=== PATIENT | female | born 1990 | race Caucasian/White ===

== ENCOUNTER 2020-06-03 10:05 | Outpatient (CLI) | payer OTHER, SELFPAY ==
[2020-06-03 11:34] LABS: HIV 1/2 Ab P24 Ag Result Negative (Negative)
[2020-06-03 11:52] LABS: Hepatitis B Surface Antigen Negative (Negative)
[2020-06-03 11:58] LABS: Hepatitis B Core IgM Result Negative (Negative)
[2020-06-03 12:10] LABS: Hepatitis C Virus Antibody Negative (Negative)
[2020-06-04 10:38] LABS: Rapid Plasma Reagin Non-Reactive (NonReactive)
[2020-06-05 17:56] LABS: Hepatitis Be Antibody Nonreactive
== END 2020-06-03 10:06 | disposition home or self-care (01) ==
LOC: ANHLAB 10:08
PROVIDERS: PCP Nurse Practitioner Family; Visit Provider Nurse Practitioner Obstetrics & Gynecology
DX: A64 Unspecified sexually transmitted disease (principal)
CPT/HCPCS: 36415; 86592; 86695; 86696; 86703; 86705; 86707; 86803; 87340; G0432

== ENCOUNTER 2024-09-06 05:43 | Day surgery (SDC) | payer OTHER, SELFPAY ==
[2024-09-06] VITALS (10 sets, daily range): BP systolic 129–144; BP diastolic 82–105; PULSE 75–119; RESP 12–20; TEMP 36.6–36.7; O2SAT 98–100
--- OUTSIDE RECORDS SUMMARY | 2024-09-06 06:09 | XMS_ITS | Encounter Summary ---
Author Organization [facility] Address [address] [place] [id number] Care Team Providers Care Hand Stonecutter Name Role Phone Betsy Packer Primary Care Provider [phone] Encounter Details Date Type Department Care Team (Late st Contact Info) Description 11/15/2022 MyChart Message Enc [facility] - [place] [address] [place] [phone] Betsy Packer APNP [address] [place] [address] Next Appt Social History Tobacco Use Types Packs/Day Years Used Date Smoking Tobacco: Former Cigarettes Smokeless Tobacco: Never Comments:only when drinking Alcohol Use Standard Drinks/Week Comments Not Currently 0 (1 standard drink = 0.6 oz pur e alcohol) occasionally PHQ-2 Answer Date Recorded Patient Health Questionnaire-2 Score 0 08/24/2022 Comments No Sex and Gender Information Value Date Recorded Sex Assigned at Female 08/15/2024 11:09 AM CDT Legal Sex Female 6:20 PM CDT Gender Identity Not on file Sexual Orientation Not on file COVID-19 Exposure Response Date Recorded In the last 10 days, have yo u been in contact with someone who was confirmed or suspected to have Coronavirus/COVID-19? No / Unsure 10/21/2022 7:08 AM CDT documented as of this encounter Plan of Treatment Not on file documented as of this encounter Visit Diagnoses Not on filedocumented in this encounter Additional Health Concerns Assessment Noted Time PHQ-9 Depression Total Score: 0 08/25/19 12:35 PM CDT documented as of this encounter Care Teams Hand Stonecutter Relationship Specialty Start Date End Date Betsy Packer APNP [address] [place] [id number] PCP - General NURSE PRACTITIONER 06/17/21 documented as of this encounter
--- OUTSIDE RECORDS SUMMARY | 2024-09-06 06:09 | XMS_ITS | Data Portability ---
Author Organization [facility] Address [address] [place] [address] Care Team Providers Care Air Brake Adjuster Name Role Phone ALESSIONARDA Primary Care Provider [phone] CHAPIN PERAZA Primary Care Provider [phone] Assessment Encounter Date Assessment Date Assessment LastModified by Organization Details LastModified Time 08/30/2022 08/30/2022 Annual gynecological exam performed. Patient will come back in a year unless there are new symptoms. [email or web address] Not available 08/30/2022 12:06:13 09/27/2023 09/27/2023 Annual gynecological exam performed. Patient will come back in a year unless there are new symptoms. [email or web address] Not available 09/27/2023 12:42:22 Plan of Treatment Reminders Order Date Submit Date Provider Last Modified By Organization Details Last Modified Time Details Appointments None recorded. Lab None recorded. Referral None recorded. Procedures None recorded. Surgeries None recorded. Imaging None recorded. Medication Orders Diflucan [address] [facility]/Pharmacy #[id number], [address] [place], [address], 4 13:00:33 metronidazo le 500 mg tablet [address] [facility]/Pharmacy #[id number], [address] [place], [address], 4 13:00:32 NuvaRing 0.12 mg-0.015 mg/24 hr vaginal [address]/Pharmacy #6830, [address] [place], [address], 4 09:25:18 YUMI (28) 3 mg-0.02 mg tablet 2022 023 [email or web address] [facility]/Pharmacy #[id number], [address] [place], [address], 4 12:45:00 NuvaRing 0.12 mg-0.015 mg/24 hr vaginal 2022 023 [email or web address] [facility]/Pharmacy #6830, [address] [place], [address], 3 11:08:15 Diflucan 200 mg tablet [address]/Pharmacy #6830, [address] [place], [address], 3 12:07:29 nystatin-tr iamcinolone 100,000 unit/gram-0 .1 % topical ointment [address]/Pharmacy #6830, [address] [place], [address], 3 12:07:33 Patient TargetsNo targets recorded. Patient InstructionsNo instructions recorded. Reason for Referral None Reported. Results Created Date Observation Date Name Description Value Unit Range Abnormal Flag Note LastModifiedBy Organization Detail LastModifiedTime 11/26/19 22 11/25/2021 CT/GC AND TRICH OMONA S VAGIN CEDRIC (RRNA ), URINE chlamydia trachomatis, PCR Negati ve negati ve Not Available [facility] [address] [place] [address], [phone], 11/26/2021 15:06:41 11/26/19 22 11/25/2021 CT/GC AND TRICH OMONA S VAGIN CEDRIC (RRNA ), URINE neisseria gonorrhoeae, PCR Negati ve negati ve Not Available [facility] [address] [place] [address], [phone], 11/26/2021 15:06:41 11/26/19 22 11/25/2021 CT/GC AND TRICH OMONA S VAGIN CEDRIC (RRNA ), URINE trichomonas vaginalis ribosomal RNA (rrna) Negati ve negati ve Not Available [facility] [address] [place] [address], [phone], 11/26/2021 15:06:41 03/05/20 22 03/05/2022 CT/GC AND TRICH OMONA S VAGIN CEDRIC (RRNA ), SWAB chlamydia trachomatis, PCR Negati ve negati ve Not Available [facility] [address] [place] [address], [phone], 03/06/2022 12:48:28 03/05/20 22 03/05/2022 CT/GC AND TRICH OMONA S VAGIN CEDRIC (RRNA ), SWAB neisseria gonorrhoeae, PCR Negati ve negati ve Not Available [facility] [address] [place] [address], [phone], 03/06/2022 12:48:28 03/05/20 22 03/05/2022 CT/GC AND TRICH OMONA S VAGIN CEDRIC (RRNA ), SWAB trichomonas vaginalis ribosomal RNA (rrna) Negati ve negati ve Not Available [facility] [address] [place] [address], [phone], 03/06/2022 12:48:28 08/31/19 23 08/30/2022 IMAGE GUIDE D PAP AND HPV REGAR DLESS image guided Pap, HPV regardless of Pap result SEE RESULT S BELOW CASE REPOR T: Cytol ogy Gynec ologi aiden Repor t Case: [id number] Autho justo g Provi pawan: Fredrick Billingsley Colle cted: 08/30 1438 SAP SECURITY ARCHITECT Order ing Locat ion: [place] [facility] Recei zuleyma: 08/31 0902 First Scree n: Dodie Vega ret, CT Speci men: Scree michelle Pap - Image d, Cervi x STATE MENT OF ADEQU ACY: Satis facto ry for evalu ation Trans forma tion zone compo nent prese nt FINAL DIAGN OSIS: Negat guerline for Intra epith elial Lesantonella victoria or Baltazar lubin (NIL) . Elect baljinder scruggs alan d by Dodie Vega ret, CT on 2022 at 1:54 PM ----- ----- ----- ----- ----- ----- ----- ----- ----- ----- ----- ----- ----- ----- ----- ----- ----- ---- HPV RESUL TS: HPV mRNA E6/E7 : No HPV mRNA Detec patrica NOTE: This high risk HPV mRNA assay detec ts fourt een high- risk HPV types (16, 18, 31, 33, 35, 39, 45, 51, 52, 56, 58, 59, 66, 68) witho ut diffe renti ation . COMME NT: This speci men was revie wed by a Cytot echno logis t and/o r Patho logis t (as indic ated in this repor t) after evalu ation using the Thinp rep Imagi ng Syste m. CLINI AIDEN INFOR MATIO N: Menst rual Statu s: LMP (if appli cable ): Clini aiden Histo ry/Pr eviou s Pap: Type of Neopl ruth ann (if appli cable ): Signi fican t Clini aiden Findi ngs: Other Histo ry: Hormo chuy (if appli cable ): PAP EDUCA ZACHARY L NOTE: The Pap Test is a scree mihcelle test with an inher ent false negat guerline rate. Liqui d-bas ed sampl ing may decre ase, but will not elimi claudia, false negat guerline resul ts. A negat guerline resul t does not precl ude the prese nce and/o r devel opmen t of disea se, since the prese nce of abnor mal cells in the sampl e depen ds on the locat ion of the lesio n and sampl ing techn ique. Janny nued regul ar scree michelle is the best metho d of cance r preve ntion . If repor patrica cytol ogic findi ng do not corre late with physi aiden and/o r histo rical findi ngs, furth er inves tigat ion is recom ranjan d, as clini magen warra nted. Not Available [facility] (Lab) [address] [facility], [place], [address], 09/02/2022 14:56:54 08/31/19 23 08/30/2022 TRICH OMONA S VAGIN CEDRIC (RRNA ) trichomonas vaginalis ribosomal RNA (rrna) Negati ve negati ve Not Available [facility] (Lab) [address] [facility], [place], [address], 09/02/2022 14:56:54 08/31/19 23 08/30/2022 CT/GC (NIKITA) , THINP REP VIAL chlamydia trachomatis, PCR Negati ve negati ve Not Available [facility] (Lab) [address] [facility], [place], [address], 09/02/2022 14:56:55 08/31/19 23 08/30/2022 CT/GC (NIKITA) , THINP REP VIAL neisseria gonorrhoeae, PCR Negati ve negati ve Not Available [facility] (Lab) [address] [facility], [place], [address], 09/02/2022 14:56:55 12/30/19 23 12/29/2022 CT/GC AND TRICH OMONA S VAGIN CEDRIC (RRNA ), URINE chlamydia trachomatis, PCR NEGATI VE negati ve Not Available [facility] (Lab) [address] [facility], [place], [address], 12/30/2022 16:24:57 12/30/19 23 12/29/2022 CT/GC AND TRICH OMONA S VAGIN CEDRIC (RRNA ), URINE neisseria gonorrhoeae, PCR NEGATI VE negati ve Not Available [facility] (Lab) [address] [facility], [place], [address], 12/30/2022 16:24:57 12/30/19 23 12/29/2022 CT/GC AND TRICH OMONA S VAGIN CEDRIC (RRNA ), URINE trichomonas vaginalis ribosomal RNA (rrna) NEGATI VE negati ve Not Available [facility] (Lab) [address] [facility], [place], [address], 12/30/2022 16:24:57 09/27/19 24 09/27/2023 IMAGE GUIDE D PAP AND HPV REGAR DLESS image guided Pap, HPV regardless of Pap result SEE RESULT S BELOW CASE REPOR T: Cytol ogy Gynec ologi aiden Repor t Case: [id number] Autho justo rodriguez Provi pawan: Fredrick Billingsley Colle cted: 09/26 1706 SAP SECURITY ARCHITECT Order ing Locat ion: [place] Patho logy Recei zuleyma: 09/27 0811 First Scree n: Dodie Vega ret CT Speci men: Scree michelle Pap - Image d, Cervi x STATE MENT OF ADEQU ACY: Satis facto ry for evalu ation Trans forma tion zone compo nent prese nt ----- ----- ----- ----- ----- ----- ----- ----- ----- ----- ----- ----- ----- ----- ----- ----- ----- ---- FINAL DIAGN OSIS: Negat guerline for Intra epith elial Beatriz victoria or Baltazar lubin (NIL) . Elect baljinder phillips d by Dodie Vega ret CT on 2023 at 9:22 AM ----- ----- ----- ----- ----- ----- ----- ----- ----- ----- ----- ----- ----- ----- ----- ----- ----- ---- HPV RESUL TS: HPV mRNA E6/E7 : No HPV mRNA Detec patrica NOTE: This high risk HPV mRNA assay detec ts fourt een high- risk HPV types (16, 18, 31, 33, 35, 39, 45, 51, 52, 56, 58, 59, 66, 68) witho ut diffe renti ation . COMME NT: This speci men was revie wed by a Cytot echno logis t and/o r Patho logis t (as indic ated in this repor t) after evalu ation using the Thinp rep Imagi ng Syste m. CLINI AIDEN INFOR MATIO N: Menst rual Statu s: LMP (if appli cable ): Clini aiden Histo ry/Pr eviou s Pap: Type of Neopl ruth ann (if appli cable ): Signi fican t Clini aiden Findi ngs: Other Histo ry: Hormo chuy (if appli cable ): PAP EDUCA ZACHARY L NOTE: The Pap Test is a scree michelle test with an inher ent false negat guerline rate. Liqui d-bas ed sampl ing may decre ase, but will not elimi claudia, false negat guerline resul ts. A negat guerline resul t does not precl ude the prese nce and/o r devel opmen t of disea se, since the prese nce of abnor mal cells in the sampl e depen ds on the locat ion of the lesio n and sampl ing techn ique. Janny nued regul ar scree michelle is the best metho d of cance r preve ntion . If repor patrica cytol ogic findi ng do not corre late with physi aiden and/o r histo rical findi ngs, fur er inves tigat ion is recom ranjan d, as clini magen dumont nted. Not Available [facility] (Lab) [address], [place], [address], 10/01/2023 10:26:46 09/27/19 24 09/27/2023 TRICH OMONA S VAGIN CEDRIC (RRNA ) trichomonas vaginalis ribosomal RNA (rrna) Negati ve negati ve Not Available [facility] (Lab) [address] [facility], [place], [address], 10/01/2023 10:26:47 09/27/19 24 09/27/2023 CT/GC (NIKITA) , THINP REP VIAL chlamydia trachomatis, PCR Negati ve negati ve Not Available [facility] (Lab) [address] [facility], [place], [address], 10/01/2023 10:26:47 09/27/19 24 09/27/2023 CT/GC (NIKITA) , THINP REP VIAL neisseria gonorrhoeae, PCR Negati ve negati ve Not Available [facility] (Lab) [address] [facility], [place], [address], 10/01/2023 10:26:47 Result Notes None recorded. Problems Name Problem SNOMED Code Status Onset Date Resolution Date Notes Provider Name and Address Organization Details Recorded Time Pregnanc y test negative [id number] Completed 201208/22/2012 Pregnanc y examinat ion or test, negative result;R ecorded Elsewher e: No Locat ion: [facility] S ource: EHR Sawmill Equipment Operator hallie: Dejah Carmona ce ID: 0001 Bryson lable Time: 08:30:00 AM Flory flores [facility] 10:57:25 Postpart um care Completed 201307/21/2020 Postpart um care and examinat ion of lactatin g mother;R ecorded Elsewher e: No Locat ion: [facility] S ource: EHR Sawmill Equipment Operator hallie: Dejah Carmona ce ID: 0001 Bryson lable Time: 11:30:00 AM Flory flores [facility] 1 10:57:23 Venereal disease screenin g Completed 201407/21/2020 Screenin g examinat ion for venereal disease; Recorded Elsewher e: No Locat ion: [facility] [place] saira [facility] S ource: EHR Sawmill Equipment Operator hallie: N Kristine ce ID: 0001 Bryson lable Time: 02:30:00 PM Flory flores [facility] 1 10:57:55 Speciali zed medical examinat ion Completed 201208/22/2012 Gynecolo gical Examinat ion;Fransisco rded Elsewher e: No Locat ion: [facility] S ource: EHR Sawmill Equipment Operator hallie: N Carlosti ce ID: 0001 Bryson lable Time: 10:30:00 AM Flory flores [facility] 10:57:41 Implanta tion of subcutan eous contrace ptive Completed 201307/21/2020 Insertio n of implanta ble subderma l contrace ptive;Re corded Elsewher e: No Locat ion: [facility] S ource: EHR Sawmill Equipment Operator hallie: N Carlosti ce ID: 0001 Bryson lable Time: 09:45:00 AM Flory flores [facility] 1 10:57:15 Syphilis test finding [id number] Completed 201607/21/2020 Encntr screen for infectio ns w sexl mode of transmis s;Record ed Elsewher e: No Locat ion: [facility] S ource: EHR Sawmill Equipment Operator hallie: N Kristine ce ID: 0001 Bryson lable Time: 02:15:00 PM Flory flores [facility] 1 10:57:46 Primigra akash [id number] Completed 201307/21/2020 Supervis ion of normal first pregnanc y;Record ed Elsewher e: No Locat ion: [facility] S ource: EHR Sawmill Equipment Operator hallie: N Practi ce ID: 0001 Bryson lable Time: 09:30:00 AM Flory flores [facility] 10:57:[address] Concept Completed 201607/21/2020 Encounte r for surveill ance of other contrace ptives;R ecorded Elsewher e: No Locat ion: [facility] S ource: EHR Sawmill Equipment Operator hallie: N Practi ce ID: 0001 Bryson lable Time: 12:58:44 PM Flory Guzman [facility] 10:57:39 Conducti on disorder of the heart [id number] Completed 201307/21/2020 Bradycar henrik;Fransisco rded Elsewher e: No Locat ion: [facility] S ource: EHR Sawmill Equipment Operator hallie: N Practi ce ID: 0001 Bryson lable Time: 02:27:45 PM Flory Guzman [facility] 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 10:57:37 Chlamydi al infectio n [id number] Completed 201707/21/2020 Chlamydi al infectio n, unspecif ied;Fransisco rded Elsewher e: No Locat ion: [facility] S ource: EHR Sawmill Equipment Operator hallie: N Practi ce ID: 0001 Bryson lable Time: 11:00:00 AM Flory Guzman [facility] 1 10:56:56 Speciali zed medical examinat ion Completed 201407/21/2020 ROUTINE RENTAL MANAGER EXAMINAT ION;Fransisco rded Elsewher e: No Locat ion: Josefina chávez [facility] S ource: EHR Sawmill Equipment Operator hallie: N Kristine ce ID: 0001 Bryson lable Time: 02:30:00 PM Flory Guzman [facility], [facility] 10:57:41 Atypical squamous cells of undeterm ined signific ance on cervical Papanico laou smear [id number] Completed 201207/21/2020 Papanico laou smear of cervix with atypical squamous cells of undeterm ined signific ance (ASC-US) ;Recorde d Elsewher e: No Locat ion: [facility] saira [facility] N Kristine ce ID: 0001 Bryson lable Time: 10:00:00 AM Flory Guzman [facility] 10:56:28 Screenin g for malignan t neoplasm of cervix Completed 201407/21/2020 Screenin g for malignan t neoplasm s of the cervix;R ecorded Elsewher e: No Locat ion: Josefina chávez [facility] N Kristine ce ID: 0001 Bryson lable Time: 02:30:00 PM Flory Guzman [facility] 10:57:34 Threaten ed miscarri age [id number] Completed 201307/21/2020 Threaten ed , antepart um;Recor ded Elsewher e: No [facility]: EHR Sawmill Equipment Operator hallie: N Carlosti ce ID: 0001 Bryson lable Time: 12:14:00 PM Flory Guzman [facility], [facility] 10:57:49 Irregula r intermen strual bleeding [id number] Completed 201407/21/2020 Irregula r bleeding between periods; Recorded Elsewher e: No [facility]at ion[facility] S [facility]: EHR Sawmill Equipment Operator hallie: N Kristine ce ID: 0001 Bryson lable Time: 02:30:00 PM Flory flores, [facility] 10:57:18 Obesity [id number] Completed 201407/21/2020 Obesity; Recorded Elsewher e: No Locat ion: [facility] N Kristine ce ID: 0001 Bryson lable Time: 02:30:00 PM Flory flores, [facility] 1 10:57:20 Procedur e Completed 201707/21/2020 Encounte r for checking , reinsert ion or removal of implanta ble subderma l contrace ptive;Re corded Elsewher e: No Locat ion: [facility]: N Kristine ce ID: 0001 Bryson lable Time: 05:00:00 PM Flory Waltertz mark, [facility] 1 10:57:32 Screenin g for malignan t neoplasm of cervix Completed 201208/22/2012 Screenin g for malignan t neoplasm s of the cervix;R ecorded Elsewher e: No Locat ion: [facility]: Dejah Carmona ce ID: 0001 Bryson lable Time: 10:30:00 AM Flory flores, [facility] 1 10:57:34 Ultrason ography Completed 201307/21/2020 Antenata l screenin g for malforma tion using ultrason ics;Fransisco rded Elsewher e: No Locat ion: [facility] S ource: EHR Sawmill Equipment Operator hallie: Dejah Gonzalezti ce ID: 0001 Bryson lable Time: 02:30:00 PM Flory Waltertz mark [facility] 10:57:53 Antenata l screenin g Completed 201307/21/2020 Antenata l screenin g for malforma tion using ultrason ics;Fransisco rded Elsewher e: No [facility]at [facility]: EHR Sawmill Equipment Operator hallie: N Practi ce ID: 0001 Bryson lable Time: 02:30:00 PM Flory flores, [facility] 1 10:56:25 Congenit al malforma tion [id number] Completed 201307/21/2020 Antenata l screenin g for malforma tion using ultrason ics;Fransisco rded Elsewher e: No Locat ion: [facility] S ource: EHR Sawmill Equipment Operator hallie: N Practi ce ID: 0001 Bryson lable Time: 02:30:00 PM Flory Guzman [facility], [facility] 1 10:57:08 Infectio n screenin g Completed 201607/21/2020 Encounte r for screenin g for oth infec/pa rastc diseases ;Recorde d Elsewher e: No Locat ion: [facility]: N Practi ce ID: 0001 Bryson lable Time: 02:15:00 PM Flory Guzman [facility], [facility] 1 10:57:12 Speciali zed medical examinat ion Completed 201407/21/2020 Other specifie d chlamydi al diseases ;Recorde d Elsewher e: No Locat ion: [facility] S ource: EHR Sawmill Equipment Operator hallie: N Practi ce ID: 0001 Bryson lable Time: 02:30:00 PM Flory Guzman [facility] 10:57:43 Cervical intraepi thelial neoplasi a grade 1 [id number] Completed 201207/21/2020 Mild dysplasi a of cervix;R ecorded Elsewher e: No Locat ion: [facility] S ource: EHR Sawmill Equipment Operator hallie: N Practi ce ID: 0001 Bryson lable Time: 08:30:00 AM Flory Guzman mark, [facility] 10:56:59 Complica tion related to pregnanc y Completed 201307/21/2020 Weight Insuffic ient Antepart um;Pract ice ID: 0001 Flory Guzman mark, [facility] 10:57:02 Prematur e labor [id number] Completed 201307/21/2020 LABOR;Pr actice ID: 0001 Flory Guzman [facility], [facility] 10:57:27 Delivery normal [id number] Completed 201307/21/2020 Normal delivery ;Practic e ID: 0001 Flory Megan mark, [facility] 10:57:10 Single live from singleto n pregnanc y [id number] Completed 201307/21/2020 Mother with single liveborn ;Practic e ID: 0001 Flory Guzman [facility], [facility] 10:57:36 Pregnanc y test negative [id number] Completed 201307/21/2020 Negative Pregnanc y Test;Pra ctice ID: 0001 Flory Guzman [facility], [facility] 10:57:25 History of abnormal cervical Papanico laou smear [id number] Completed 201208/27/2021 lgsil / HPV CIN1 Rachna Lopez [facility] 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 4 12:45:16 Mixed anxiety and depressi ve disorder [id number] Active 2023 Flory Guzman [facility] 12:45:33 Problem Notes None recorded. Procedures Surgical History Date Name Laterality Status Provider Name and Address Organization Details Recorded Time 08/29/19 22 Date of Last Pap Smear completed Rachna Lopez [facility] 11/25/2021 16:01:08 08/08/19 21 Unlisted px femur/knee completed Daisy Ramos [facility]- [address], [place], [address], [facility] 08/28/2021 11:56:34 06/16/19 21 Colposcopy completed Flory Guzman [facility] 07/21/2020 11:03:04 06/16/19 21 Colposcopy completed Flory Guzman [facility] 09/27/2023 13:01:05 08/23/19 13 Colposcopy completed Flory Guzman [facility] 07/21/2020 11:01:19 05/09/19 10 Tonsillectomy completed Florylucy Guzman [facility] 09/27/2023 13:01:55 Imaging Results None recorded. Procedure Notes None recorded. Medical Equipment None Reported. Allergies No known drug allergies Medications Name Sig Start Date Stop Date Status Note LastModified by Organization Details LastModified Time amoxicill in 500 mg capsule TAKE 1 CAPSULE BY MOUTH EVERY 12 HOURS FOR 10 DAYS 08/28 completed Not Available Not Available Not Available prednison e 10 mg tablet START 60 MG TODAY AND DECREASE BY ONE TABLET EACH DAY UNTIL COMPLETE . 09/26 completed Not Available Not Available Not Available doxycycli ne hyclate 100 mg capsule TAKE 1 CAPSULE BY MOUTH TWICE A DAY FOR 7 DAYS 11/25 completed Not Available Not Available Not Available azithromy lorrie 250 mg tablet TAKE 2 TABLETS BY MOUTH TODAY, THEN TAKE 1 TABLET DAILY FOR 4 DAYS 09/26 completed Not Available Not Available Not Available ibuprofen 800 mg tablet 11/25 completed Not Available Not Available Not Available fluconazo le 150 mg tablet TAKE 1 TABLET (150 MG TOTAL) BY MOUTH ONCE FOR 1 DOSE. 09/26 completed Not Available Not Available Not Available valacyclo vir 1 gram tablet TAKE 1 TABLET EVERY 12 HOURS BY ORAL ROUTE. 11/17 completed Not Available Not Available Not Available hydrocodo ne 5 mg-acetam inophen 325 mg tablet 11/25 completed Not Available Not Available Not Available tretinoin 0.025 % topical cream 12/29 completed Not Available Not Available Not Available fluconazo le 200 mg tablet TAKE 1 TABLET EVERY OTHER DAY X 3 DOSES active Not Available Not Available No t Available metronida zole 0.75 % (37.5 mg/5 gram) vaginal gel INSERT 1 APPLICAT ORFUL EVERY DAY BY VAGINAL ROUTE. 06/29 completed Not Available Not Available Not Available prednison e 20 mg tablet TAKE 3 TABLETS DAILY FOR 3 DAYS, 2 TABLETS DAILY FOR 3 DAYS, THEN 1 TABLET DAILY FOR 3 DAYS 09/26 completed Not Available Not Available Not Available dextroamp hetamine- amphetami ne 10 mg tablet TAKE 1 TABLET BY MOUTH TWICE A DAY 08/28 completed Not Available Not Available Not Available ceftriaxo ne 250 mg solution for injection Take 1 mg by injectio n route for 1 day. 07/07 completed Not Available Not Available Not Available metronida zole 500 mg tablet TAKE 1 TABLET BY ORAL ROUTE EVERY 12 HOURS X 7 DAYS WITH FOOD AND AVOID ALCOHOL 2023 active Not Available Not Available Not Avai lable acetamino phen 300 mg-codein e 30 mg tablet TAKE 1 TO 2 TABLETS BY MOUTH EVERY 6 HOURS NEEDED FOR PAIN 04/30 completed Not Available Not Available Not Available triamcino lone acetonide 0.1 % topical cream APPLY TOPICALL Y TWICE A DAY 09/26 completed Not Available Not Available Not Available dextroamp hetamine- amphetami ne 30 mg tablet TAKE 1(ONE) TABLET BY MOUTH 2(TWO) TIMES DAILY. active Not Available Not Available No t Available nystatin- triamcino lone 100,000 unit/gram -0.1 % topical ointment APPLY TO THE AFFECTED AREA(S) BY TOPICAL ROUTE 2 TIMES PER DAY x 7 days PRN 08/30 completed Not Available Not Available Not Available alprazola m 0.5 mg tablet TAKE 1 TABLET BY MOUTH 2 TIMES DAILY NEEDED FOR SLEEP OR ANXIETY. active Not Available Not Available No t Available amoxicill in 875 mg tablet TAKE 1 TABLET BY MOUTH EVERY 12 HOURS FOR 10 DAYS 08/28 completed Not Available Not Available Not Available benzonata te 100 mg capsule 11/07 completed Not Available Not Available Not Available hydrocodo ne 7.5 mg-acetam inophen 325 mg tablet TAKE 1 TABLET BY MOUTH EVERY 4 HOURS 04/30 completed Not Available Not Available Not Available cephalexi n 500 mg capsule TAKE 1 CAPSULE BY MOUTH EVERY 6 HOURS 04/30 completed Not Available Not Available Not Available buspirone 10 mg tablet TAKE 1 TABLET BY MOUTH TWICE A DAY 08/28 completed Not Available Not Available Not Available dextroamp hetamine- amphetami ne 20 mg tablet TAKE 1 TABLET (20 MG TOTAL) BY MOUTH DAILY. IN THE AFTERNOO N 09/26 completed Not Available Not Available Not Available Loestrin 20 (21) 1 mg-20 mcg tablet take 1 tablet by oral route every day 04/30 completed Prescrib ed Elsewher e: No Locat ion: [facility] odify By: [email or web address] ndt Enco unter DateTime : 10/12/19 03:45:00 PM Not Available Not Available Not Available promethaz ine 25 mg tablet 04/30 completed Not Available Not Available Not Available dextroamp hetamine- amphetami ne 15 mg tablet TAKE 1 TABLET BY MOUTH 2 TIMES DAILY. 08/28 completed Not Available Not Available Not Available Drysol Dab-O-Mat ic 20 % topical solution APPLY TOPICALL Y NIGHTLY AT BEDTIME. 09/26 completed Not Available Not Available Not Available monteluka st 10 mg tablet 08/28 completed Not Available Not Available Not Available Valtrex 500 mg tablet Take 1 tablet(s ) every day by oral route for 90 days. 2024 active Not Available Not Available Not Avai lable azelastin e 137 mcg (0.1 %) nasal spray SPRAY 2 SPRAYS INTO EACH NOSTRIL TWICE A DAY 08/28 completed Not Available Not Available Not Available albuterol sulfate HFA 90 mcg/actua tion aerosol inhaler INHALE 2 PUFFS INTO THE LUNGS 4 TIMES A DAY NEEDED 08/28 completed Not Available Not Available Not Available Vitamin D2 1,250 mcg (50,000 unit) capsule take 1 capsule (84228KY ITS) by oral route every week 05/07 completed Prescrib ed Elsewher e: No Locat ion: [facility] odify By: erika barrower DateTime : 08/09/19 14 10:27:49 AM Not Available Not Available Not Available cefdinir 300 mg capsule 04/30 completed Not Available Not Available Not Available naproxen 500 mg tablet TAKE 1 TABLET BY MOUTH TWICE A DAY 05/28 completed Not Available Not Available Not Available amoxicill in 875 mg-potass ium clavulana te 125 mg tablet TAKE 1 TABLET BY MOUTH TWICE A DAY FOR 10 DAYS 09/26 completed Not Available Not Available Not Available NuvaRing 0.12 mg-0.015 mg/24 hr vaginal INSERT 1 DEVICE INTO VAGINA EVERY 4WKS FOR CONTINUO US USE THERAPY. active Not Available Not Available No t Available azithromy lorrie 500 mg tablet TAKE 2 TABLETS BY MOUTH FOR 1 DOSE 03/05 completed Not Available Not Available Not Available atomoxeti ne 25 mg capsule TAKE 1 CAPSULE BY MOUTH EVERY DAY 08/28 completed Not Available Not Available Not Available ciproflox acin 0.3 %-dexamet hasone 0.1 % ear drops,hazel pension 04/30 completed Not Available Not Available Not Available Tri-Sprin sung (28) 0.18 mg(7)/0.2 15 mg(7)/0.2 5 mg(7)-0.0 35 mg tablet take 1 tablet by oral route every day 07/10 completed Prescrib ed Elsewher e: No Locat ion: [facility] odify By: erika louis DateTime : 01/18/20 13 04:13:46 PM Not Available Not Available Not Available levalbute rol HFA 45 mcg/actua tion aerosol inhaler INHALE 2 PUFFS INTO THE LUNGS EVERY 6 HOURS NEEDED FOR WHEEZE active Not Available Not Available No t Available NuvaRing 11/07 completed Not Available Not Available Not Available Nexplanon 68 mg subdermal implant Inject by subcutan eous route. 04/30 completed Not Available Not Available Not Available Vestura (28) 3 mg-0.02 mg tablet Take 1 tablet every day by oral route as directed for 90 days. active Not Available Not Available No t Available lidocaine 5 % topical ointment APPLY TO AFFECTED AREA 1 4 TIMES DAILY NEEDED 08/28 completed Not Available Not Available Not Available Ubrelvy 50 mg tablet TAKE 1 TABLET BY MOUTH TWICE A DAY NEEDED FOR MIGRAINE S. MAX 4 TABS IN 24 HOURS. 03/05 completed Not Available Not Available Not Available Flowflex COVID-19 Antigen Home Test kit FOLLOW INSTRUCT IONS INCLUDED WITH THE PACKAGE. 08/30 completed Not Available Not Available Not Available Vitals Date Recorded Body height Body weight Systolic blood pressure Diastolic blood pressure Provider Name and Address Organization Details Last Updated DateTime 11/25/2021 167.64 cm 87098.99 g 126 mm[Hg] 74 mm[Hg] [facility] 11/25/2021 16:00:11 Date Recorded Body height Body mass index (BMI) Body weight Systolic blood pressure Diastolic blood pressure Provider Name and Address Organization Details Last Updated DateTime 03/05/2022 167.64 cm 31.2 kg/m2 18737.33 g 122 mm[Hg] 70 mm[Hg] [facility] 11:23:08 Date Recorded Body height Body mass index (BMI) Body weight Provider Name and Address Organization Details Last Updated DateTime 08/30/2022 167.64 cm 30.3 kg/m2 25003.37 g Rachna [facility] 08/30/2022 12:06:24 Date Recorded Systolic blood pressure Diastolic blood pressure Provider Name and Address Organization Details Last Updated DateTime 08/30/2022 118 mm[Hg] 76 mm[Hg] Daisy Ramos, [facility]- [address], [place], [address], [facility] 08/31/2022 10:57:17 Date Recorded Body height Body mass index (BMI) Body weight Systolic blood pressure Diastolic blood pressure Provider Name and Address Organization Details Last Updated DateTime 12/29/2022 167.64 cm 29.4 kg/m2 07145.81 g 138 mm[Hg] 86 mm[Hg] Lisset Ross [facility] 10:59:41 Date Recorded Systolic blood pressure Diastolic blood pressure Provider Name and Address Organization Details Last Updated DateTime 12/29/2022 118 mm[Hg] 80 mm[Hg] Daisy Ramos, [facility] [address], [place], [address], [facility] 12/29/2022 11:12:22 Date Recorded Body height Body mass index (BMI) Body weight Provider Name and Address Organization Details Last Updated DateTime 09/27/2023 167.64 cm 29.5 kg/m2 97367.4 g Flory Guzman [facility] 09/27/2023 12:42:54 Date Recorded Systolic blood pressure Diastolic blood pressure Provider Name and Address Organization Details Last Updated DateTime 09/27/2023 122 mm[Hg] 70 mm[Hg] Daisy Ramos, [facility] [address], [place], [address], [facility] 09/27/2023 13:54:58 Social History Question Answer Notes LastModified by Organizat ion Details LastModified Time Tobacco Smoking Status Never Smoker BECKY flores, [facility] 08/30/2022 12:01:18 Do You Have An Advance Directive? No Information not available 08/28/2021 What Is Your Level Of Alcohol Consumption? Occasional Information not available 05/28/2020 If You Are , What Was Your Level Of Alcohol Consumption Prior To ? None Information not available 08/30/2022 How Many Years Have You Consumed Alcohol? 6 Information not available 05/28/2020 Are You Blind Or Do You Have Difficulty Seeing? No [email or web address] Information not available 07/21/2020 What Is Your Level Of Caffeine Consumption? Occasional [email or web address] Information not available 07/21/2020 How Much Tobacco Do You Chew? None Information not available 08/28/2021 In The 14 Days Before Symptom Onset, Have You Had Close Contact With A Laboratory-confir med COVID-19 While That Case Was Ill? No [email or web address] Information not available 07/21/2020 In The 14 Days Before Symptom Onset, Have You Had Close Contact With A Person Who Is Under Investigation For COVID-19 While That Person Was Ill? No [email or web address] Information not available 07/21/2020 Have You Been To An Area Known To Be High Risk For COVID-19? No [email or web address] Information not available 07/21/2020 Are You Deaf Or Do You Have Serious Difficulty Hearing? No [email or web address] Information not available 07/21/2020 What Type Of Diet Are You Following? REGULAR [email or web address] Information not available 07/21/2020 What Is The Highest Grade Or Level Of School You Have Completed Or The Highest Degree You Have Received? 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 5 Information not available 08/30/2022 On Those Days That You Engage In Moderate To Strenuous Exercise, How Many Minutes, On Average, Do You Exercise? 60 Information not available 08/30/2022 Are There Any Guns Present In Your Home? Yes Information not available 08/28/2021 Have You Ever Been Counseled For Unhealthy Alcohol Use? No Information not available 08/30/2022 Do You Use Protection During Sex? Always Information not available 08/28/2021 Do You Use Your Seat Belt Or Car Seat Routinely? Yes [email or web address] Information not available 07/21/2020 Do You Have Smoke And Carbon Monoxide Detectors In Your Home? Yes [email or web address] Information not available 07/21/2020 How Much Tobacco Do You Smoke? No Information not available 08/28/2021 Do You Feel Stressed (tense, Restless, Nervous, Or Anxious, Or Unable To Sleep At Night)? [id number] [email or web address] Information not available 07/21/2020 Do You Use Any Illicit Or Recreational Drugs? No Information not available 05/28/2020 Do You Use Sunscreen Routinely? Yes [email or web address] Information not available 07/21/2020 Has Tobacco Cessation Counseling Been Provided? No Information not available 08/30/2022 Have You Used IV Drugs? No Information not available 08/28/2021 Do You Or Have You Ever Used Any Other Forms Of Tobacco Or Nicotine? No Information not available 08/30/2022 How Many Days In The Past Year Have You Consumed 4 Or More Drinks? 15 Information no t available 08/30/2022 Sex: Unknown Functional Status Question Answer Note LastModified by Organizat ion Details LastModified Time Do you have difficulty walking or climbing stairs? No Information not available 08/30/2022 Are you able to walk? YESWOREST [email or web address] Information not available 07/21/2020 Are you able to care for yourself? Yes Information not available 08/30/2022 Do you have difficulty dressing or bathing? No Information not available 08/30/2022 What is your exercise level? Heavy Information not available 08/28/2021 Mental Status None recorded. Family History Relationship Description Onset Age of this Age Resolved Age Notes LastModified by Organization Details LastModified Time Father No current problems or disability [email or web address] Not available 07/07 11:00:30 Mother No current problems or disability Not available 07/07 11:00:30 Medical History Condition Response Other N Blood Transfusion N Dermatologic Disorders N Gestational Diabetes N Anxiety Disorder Y Autoimmune disease N Arthritis N Polyps N Infertility N Acid Reflux (GERD) N Cancer N Varicosities N Stroke N Neurologic/Epilepsy Y Fibromyalgia N Headaches N Kidney Disease N Heart Problems N Kidney or Bladder Problems N Eating Disorder N Art (IVF or FET) N Hepatitis/Liver Disease N No Past Medical History N Urinary Tract Infection N Asthma N Trauma/Violence N Thrombophilias N Allergies (Food, seasonal, environmental ) N Breast Cancer N Drug/Latex Allergies/Reactions N Lung Disease N Defects or Inherited Disease N Breast Problem N Hematologic disorders N Anesthesia Complications N History of STI Y Deep Vein Thrombosis N Polycystic ovary syndrome N History of abnormal pap Y Endometriosis N High Cholesterol N Thyroid Problems N GI Problems N Anemia N Psychiatric Illness Y Ovarian Cancer N Diabetes N Pulmonary (TB, Asthma) N Eczema N Abuse/Domestic Violence N Depression/ depression Y Heart Disease N Pre-Eclampsia N Hypertension N Osteoporosis N Gynecological History Statement/Question Response Date of Last Mammogram Date of LMP 08/28/2023 N STIs/STDs Yes Was last menstrual period normal Y Vaginal Ring Desired Control Method Vaginal Rin g Abnormal Pap Y HPV Vaccine Y Colposcopy 06/16/2020 Duration of Flow (days) 5 Current Control Method Vaginal Rin g Are cycles usually normal Y Sexually Active? Y Menses Monthly Y Date of DEXA bone scan Age of first menstrual cycle 15 Date of Last Pap Smear 08/28/2021 Sexual Problems? N LMP Definite N 08/20/2012 Obstetrics History GPAL:G 1 P 1 0 0 1 Type Value Full Term 1 Living 1 Total 1 Past Encounters Encounter ID Performer Location Encounter Start Date Encounter Closed Date Diagnosis/Indication Diagnosis SNOMED-CT Code Diagnosis ICD10 Code Diagnosis Note [id number] Daisy Ramos , [facility] [address] [address] 10/22/2019 15:32:21 10/22/2019 17:28:17 Gynecologic examination 66471874 Z01.419 Take Calcium with Vitamin D 1200mg daily if not receiving in daily diet. It is strongly advised to have an annual flu shot and up can obtain at most pharmacies . If you have not had a TDap shot in the last 10 years you should obtain one as well. Discussed with patient & provided with informatio n regarding Gardisil vaccine to prevent the 4 strains for HPV that cause cervical cancer if under age 26. Encourage safe sexual practices, to use condoms and limit partners if not already in a monogamous relationsh ip. Do monthly self breast exams. Have mammogram yearly or every other year depending on family history. BRCA testing is now available for patients with strong genetic history of female cancer. If interested contact the office. Engage in daily exercise of low impact aerobic exercise 45-60 minutes 4-5 times weekly. Avoid tobacco and illicit drugs as well as using moderation with alcohol intake less than 1-2 8 oz beverages daily. This lifestyle behavior pattern will lead to less health conditions and longer life span. If BMI greater than 25 weight watchers or dietary consult advised. Patient received above instructio ns, and questions have been answered. If you have any questions please call or respond to this email. Patient was made aware of the patient portal and may obtain a paper copy of today's plan if desired. [facility] ion care management [id number] Z30.9 [id number] Daisy Friedbrook [facility] [address],[place] [address] 04/30/2020 12:06:44 04/30/2020 13:10:10 Sexually transmitted infectious disease 1499083 A64 BRANDEE sent today No sx's Time spent in visit is a total of 15 mins with at least 50% of visit consisting of counseling and review of plan of care. Secondary dysmenorrhea 36574063 N94.5 RF Naproxen sent [id number] Daisy Friedbrook [facility] [address],[place] [address] 05/28/2020 11:36:52 05/28/2020 12:06:29 Cervicovaginal cytology specimen unsatisfactory [id number] R87.615 Pap collected. Will contact with results. Time spent in visit is a total of 15 mins with at least 50% of visit consisting of counseling and review of plan of care. Additional precaution lilibeth measures were taken to minimize potential exposure to the Covid-19 virus during this patient s visit, including available hand powdered sugar supervisor upon arrive, temperatur e check and being asked a series of screening questions. All staff wore face coverings during this encounter, as well as provided additional cleaning and sanitizing of all surfaces, including countertop s, pens, chairs, door handles, light switches, etc, prior to and following the patient s visit. [id number] Chapin Freeman [facility] [place] [address],[place] [address] 06/03/2020 10:01:24 06/16/2020 14:24:02 Gonorrhea 37874927 A54.9 [id number] Chapin Freeman CN[facility] [place] [address] [place] [address] 07/21/2020 10:47:08 07/21/2020 11:20:11 Gynecologic examination 53855578 Z01.419 contracept guerline management Gonorrhea 74754819 A54.9 Venereal d isease screening 005088603 Z11.3 [id number] Chapin ChávezHong Pete, [facility] [address] [address] 11/07/2020 10:31:43 11/07/2020 13:23:11 Herpes simplex 27051749 B00.9 Vaginitis 18169700 N76.0 [id number] Daisy Ramos , [facility] [address] [address] 08/28/2021 11:27:48 08/31/2021 16:02:19 Gynecologic examination 78398447 Z01.419 Take Calcium with Vitamin D 1200mg daily if not receiving in daily diet. It is strongly advised to have an annual flu shot and up can obtain at most pharmacies . If you have not had a TDap shot in the last 10 years you should obtain one as well. Discussed with patient & provided with informatio n regarding Gardisil vaccine to prevent the 4 strains for HPV that cause cervical cancer if under age 26. Encourage safe sexual practices, to use condoms and limit partners if not already in a monogamous relationsh ip. Do monthly self breast exams. Have mammogram yearly or every other year depending on family history. BRCA testing is now available for patients with strong genetic history of female cancer. If interested contact the office. Engage in daily exercise of low impact aerobic exercise 45-60 minutes 4-5 times weekly. Avoid tobacco and illicit drugs as well as using moderation with alcohol intake less than 1-2 8 oz beverages daily. This lifestyle behavior pattern will lead to less health conditions and longer life span. If BMI greater than 25 weight watchers or dietary consult advised. Patient received above instructio ns, and questions have been answered. If you have any questions please call or respond to this email. Patient was made aware of the patient portal and may obtain a paper copy of today's plan if desired. Pap/hpv sentSTD Screen declinedGe netic Screen discussedC olon Screen naDexa Screen naRoutine Labs UTD PCP Herpes simplex [id number] B00.9 RF sent x 1yr Contracept ion care management [id number] Z30.9 RF sent x 1yr [id number] Daisy Ramos [facility] [address],[place] [address] 11/25/2021 15:51:09 11/25/2021 16:20:10 Venereal disease screening 645617513 Z11.3 BRANDEE sentWill contact with results Counseled on Safe sex practices with understand ing verbalized . Time spent in visit is a total of 15 mins with at least 50% of visit consisting of counseling and review of plan of care. [id number] Daisy Ramos [facility] [address],[place] [address] 03/05/2022 11:07:56 03/05/2022 12:13:30 Vaginitis 20239945 N76.0 Suspect yeastRecen t trip to [place] likely cause.STD screen sent Counseled on medication R/B's, Most common side effects, & use. All questions were answered to patient satisfacti on. Time spent in visit is a total of 15 mins with at least 50% of visit consisting of counseling and review of plan of care. [id number] Daisy Ramos [facility] [address],[place] [address] 08/30/2022 11:59:17 08/31/2022 11:57:41 Gynecologic examination 98748976 Z01.419 Z11.3 Z11.8 Take Calcium with Vitamin D 1200mg daily if not receiving in daily diet. It is strongly advised to have an annual flu shot and up can obtain at most pharmacies . If you have not had a TDap shot in the last 10 years you should obtain one as well. Discussed with patient & provided with informatio n regarding Gardisil vaccine to prevent the 4 strains for HPV that cause cervical cancer if under age 26. Encourage safe sexual practices, to use condoms and limit partners if not already in a monogamous relationsh ip. Do monthly self breast exams. Have mammogram yearly or every other year depending on family history. BRCA testing is now available for patients with strong genetic history of female cancer. If interested contact the office. Engage in daily exercise of low impact aerobic exercise 45-60 minutes 4-5 times weekly. Avoid tobacco and illicit drugs as well as using moderation with alcohol intake less than 1-2 8 oz beverages daily. This lifestyle behavior pattern will lead to less health conditions and longer life span. If BMI greater than 25 weight watchers or dietary consult advised. Patient received above instructio ns, and questions have been answered. If you have any questions please call or respond to this email. Patient was made aware of the patient portal and may obtain a paper copy of today's plan if desired. Pap/hpv sentSTD Screen sentGeneti c Screen discussedC olon Screen naDexa Screen naRoutine Labs -PCPBC: Nuvaring-- wants to make appt to discuss tubal ligation. [facility] ion care management [id number] Z30.9 RF sent x 1yr but is possibly interested in consult for tubal ligation.W ill schedule. [id number] Daisy Ramos [facility] [address] [address] 12/29/2022 10:43:50 12/29/2022 11:20:11 Cystic acne 73284745 L70.0 N94.5 Today we discussed switch in from nuvaring to BCP for at least the next 90 days.We will hold off on continuous use cycling until after the first 90days & discuss this at her 3mos med check.She will start on Tuesday since on period now.Back up method advised. Discussed all control options in great detail. Pt would like to start ocp. She is aware of the risks and benefits. She does not have any medical condition that is contraindi cated with the use of estrogen containing control. Pt will start her pills on the first tuesday following the start of her period. She is aware it is not effective for control the first month. She is also aware of the importance of taking at the same time every day. Encouraged use of condoms as the pill does not protect against STD's. Will return in 3 months for med check. Consent was read and signed. Pt verbalized understand ing. RTO x 3mos med check Time spent in visit is a total of 30 mins with at least 50% of visit consisting of counseling and review of plan of care. Venereal d isease screening [id number] Z11.3 Urine std screen sent upon requestNo sx's [id number] Daisy Ramos , [facility] [address] [address] 09/27/2023 12:33:04 09/27/2023 13:59:27 Gynecologic examination 44867677 Z01.419 Z11.51 Take Calcium with Vitamin D 1200mg daily if not receiving in daily diet. It is strongly advised to have an annual flu shot and up can obtain at most pharmacies . If you have not had a TDap shot in the last 10 years you should obtain one as well. Discussed with patient & provided with informatio n regarding Gardisil vaccine to prevent the 4 strains for HPV that cause cervical cancer if under age 26. Encourage safe sexual practices, to use condoms and limit partners if not already in a monogamous relationsh ip. Do monthly self breast exams. Have mammogram yearly or every other year depending on family history. BRCA testing is now available for patients with strong genetic history of female cancer. If interested contact the office. Engage in daily exercise of low impact aerobic exercise 45-60 minutes 4-5 times weekly. Avoid tobacco and illicit drugs as well as using moderation with alcohol intake less than 1-2 8 oz beverages daily. This lifestyle behavior pattern will lead to less health conditions and longer life span. If BMI greater than 25 weight watchers or dietary consult advised. Patient received above instructio ns, and questions have been answered. If you have any questions please call or respond to this email. Patient was made aware of the patient portal and may obtain a paper copy of today's plan if desired. Pap/hpv sentSTD Screen sentGeneti c Screen discussedC olon Screen [facility] -[facility]: Nuvaring-- wants rf's Vaginitis [id number] N76.0 Exam +BV/Yeast presentati on Counseled on medication R/B's, Most common side effects, & use. All questions were answered to patient satisfacti on. Health Concerns Section Related Observation LastModified by Organization Detai ls LastModified Time None Recorded Concern Status LastModified by Organization Details LastModified Time None Recorded Advance Directives Directive N: Payers Encounter Date Sequence Insurance Name Policy Number Policy Alvarez Covered Member ID Alvarez Member ID Guarantor Name 11/25/2021 1 [facility] [id number] Lynn Roland [id number] Lynn Roland 03/05/2022 1 [facility] [id number] Lynn Roland [id number] Lynn Roland 08/30/2022 1 [facility] [id number] Lynn Roland [id number] Lynn Roland 12/29/2022 1 [facility] [id number] Lynn Roland [id number] Lynn Roland 09/27/2023 1 [facility] [id number] Lynn Roland [id number] Lynn Roland Notes Date Note Type Note Provider Name and Address Organization Details Recorded Time 11/25/2021 text/html Here today for T OC from +STD screening. Daisy Ramos [facility] [address], [place], [address], [facility] 11/25/2021 16:09:50 03/05/2022 text/html Here today for vaginal swelling & recent trip to [place].Neg odorNeg urinary sx'sWants STD screenItching+Vulv a Swelling + Daisy Ramos [facility] [address], [place], [address], [facility] 03/05/2022 11:48:52 08/30/2022 text/html Annual GYNReport ed bypatient.History: no gynecologic complaints Menstrual cycle:Normal menses (Amenorrheic on continuous use nuvaring) Urinary symptoms:No hematuria; No incontinence Vulva:No genital lesion Vagina:Normal vaginal discharge Breast:No breast pain; No breast lump; No nipple discharge Current Contraception:Sati sfied with current contraception; Nuvaring Sexual complaints:No sexual complaints; No pain during intercourse; Normal libido Menopausal Symptoms:No menopausal symptoms; Normal vaginal lubrication Psychological symptoms:No depression; No anxiety; No PMDD Preventive measures:Encourage self breast examination; Encourage regular exercise; Encourage no tobacco use; Encourage regular mammograms starting age 40; Followed with yearly pap smears; History of abnormal pap smear/cervical dysplasia ALPESH Huerta [address], [place], [address], [facility] 08/31/2022 10:58:50 12/29/2022 text/html Lynn is here today to discuss acne/feeling bloated/dysmenorrh ea recently.Took nuvaring out and started a period yesterday.Normally uses nuvaring continuous cycling.[place] off and very stressed out.Thought she might need to let her body have a menses.She will also notice random acne break outs once a month; and questions if she needs to switch her BC method to help this.Requests std screen-urine Neg pain of abd/pelvis/flankNe g urinary sx'sNeg GI sx'sNeg N/V/F/C/DNeg Vag d/c, odor, irritation, itching THANIA Huerta- [address], [place], [address], [facility] 12/29/2022 11:15:07 09/27/2023 text/html Annual GYNReport ed bypatient.Menstrua l cycle:Normal menses Urinary symptoms:No hematuria; No incontinence Vulva:No genital lesion Vagina:Foul-smelli ng;White;Vaginal itching Breast:No breast pain; No breast lump; No nipple discharge Current Contraception:Sati sfied with current contraception; Nuvaring Sexual complaints:No sexual complaints; No pain during intercourse; Normal libido Menopausal Symptoms:No menopausal symptoms; Normal vaginal lubrication Psychological symptoms:No depression; No anxiety; No PMDD Preventive measures:Encourage self breast examination; Encourage regular exercise; Encourage no tobacco use; Encourage regular mammograms starting age 40; Followed with yearly pap smears THANIA Huerta-[facility] [address], [place], [address], [facility] 09/27/2023 13:56:59 OBGyn Episode Ob Episode Information Episode Created Date Number of Fetuses Patient Bloodtype Patient rh Status Prepregnancy Weight lbs Domestic Partner Domestic Partner Phone Father Name Engineer Process Status 10/22/19 20 1 CLOSED Fetus Data First Name Last Name Admitted to NICU Weight (g) Sex Living Outcome Pediatric Complications Fetus ID Race Codes Race Delivery Type [id number] F Full Term 2290 Vaginal Delivery Koby Calculation Initial Koby Date Initial Exam Date Initial Exam Provider Initial Ultrasound Date Last Menstrual Period Date Ultra Sound Weeks Gestation 0 Eighteen To Twenty Week Koby Update Ultra Sound Date Fundal Height At Umbil Quickening Date Ultra Sound Latest Weeks Gestation Final Koby Confirmed By Final Koby Confirmed Date Final Koby Date Ultra Sound Latest Days Gestation 0 0 Menstrual History Last Menstrual Date Menses Monthly On Bcp Conception Prior Menses Frequency Hcg Plus Date Menarche Onset Age Delivery Information Delivery Date Delivery Type Labor Anesthesia Weeks Gestation Incision Type Labor Labor Length Hrs Delivered By Post Complications Tubal Sterilization Discharge Date Comments 4 39 Discharge Information Feeding Method Contraceptive Method Maternal HG B and HCT Levels
--- OUTSIDE RECORDS SUMMARY | 2024-09-06 06:09 | XMS_ITS | Encounter Summary ---
Author Organization [facility] Address [address] [place] [address] Care Team Providers Care Photogrammetric Tech Name Role Phone Betsy Packer Primary Care Provider +[phone] Encounter Details Date Type Department Care Team (Late st Contact Info) Description 01/23/2024 MyChart Message Enc [facility] Family and Sports Medicine - [place] [address] [place] [address] Betsy Packer APNP [address] [place] [address] Z pack Social History Tobacco Use Types Packs/Day Years Used Date Smoking Tobacco: Former Cigarettes Passive Smoke Exposure: Past Smokeless Tobacco: Never Comments:only when drinking Alcohol Use Standard Drinks/Week Comments Not Currently 0 (1 standard drink = 0.6 oz pur e alcohol) occasionally PHQ-2 Answer Date Recorded Patient Health Questionnaire-2 Score 0 08/25/2023 Comments No Sex and Gender Information Value Date Recorded Sex Assigned at Female 08/15/2024 11:09 AM CDT Legal Sex Female 6:20 PM CDT Gender Identity Not on file Sexual Orientation Not on file documented as of this encounter Plan of Treatment Not on file documented as of this encounter Visit Diagnoses Not on filedocumented in this encounter Additional Health Concerns Assessment Noted Time PHQ-9 Depression Total Score: 0 08/25/19 24 2:06 PM CDT documented as of this encounter Care Teams Photogrammetric Tech Relationship Specialty Start Date End Date Betsy Packer APNP [address] [place] [address] PCP - General NURSE PRACTITIONER 06/17/21 documented as of this encounter
--- OUTSIDE RECORDS SUMMARY | 2024-09-06 06:09 | XMS_ITS | Encounter Summary ---
Author Organization [facility] Address [address] [place] [address] Care Team Providers Care Php Architect Name Role Phone Betsy Packer Primary Care Provider + Encounter Details Date Type Department Care Team (Late st Contact Info) Description 03/14/2023 MyChart Message Enc [facility] Family and Sports Medicine - [place] [address] [place] [address] Betsy Packer APNP [address] [place] [address] UTI Social History Tobacco Use Types Packs/Day Years [...] Time PHQ-9 Depression Total Score: 0 08/25/19 23 12:35 PM CDT documented as of this encounter Care Teams Php Architect Relationship Specialty Start Date End Date Betsy Packer APNP [address] [place] [address] PCP - General NURSE PRACTITIONER 06/17/21 documented as of this encounter
--- OUTSIDE RECORDS SUMMARY | 2024-09-06 06:09 | XMS_ITS | Encounter Summary ---
Author Organization [facility] Address [address] [place] [address] Care Team Providers Care Access Services Librarian Name Role Phone Shelia Stewart NP Primary Care Provider + Betsy Packer Primary Care Provider + Encounter Details Date Type Department Care Team (Late st Contact Info) Description 04/28/2006 Abstract [facility] Conversion Md, Generic Conversion, Social History Tobacco Use Types Packs/Day Years Used Date Smoking Tobacco: Never Assessed Comments Unknown Sex and Gender Information Value Date Recorded Sex Assigned at Female 08/15/2024 11:09 AM CDT Legal Sex Female 6:20 PM CDT Gender Identity Not on file Sexual Orientation Not on file documented as of this encounter Plan of Treatment Not on file documented as of this encounter Visit Diagnoses Not on filedocumented in this encounter Additional Health Concerns Infection Onset Date Last Indicated Resolved Time COVID-19 Rule Out 08/06/2020 08/06/2020 08/06/2020 10:06 AM CDT COVID-19 Rule Out 08/06/2020 08/06/2020 08/08/2020 5:06 AM CDT COVID-19 Rule Out 12/09/2020 12/09/2020 12/09/2020 10:09 AM CDT COVID-19 Rule Out 12/09/2020 12/09/2020 12/10/2020 3:43 PM CDT documented as of this encounter Care Teams Access Services Librarian Relationship Specialty Start Date End Date Shelia Stewart NP [address] [place] [address] PCP - General Nurse Practitioner Family 08/22/1806/16 Betsy Packer APNP [address] [place] [address] PCP - General NURSE PRACTITIONER 06/17/21 documented as of this encounter
--- OUTSIDE RECORDS SUMMARY | 2024-09-06 06:09 | XMS_ITS | Encounter Summary ---
Author Organization [facility] Address [address] [place] [address] Care Team Providers Care Plating Machine Operator Name Role Phone Betsy Packer Primary Care Provider +4 Encounter Details Date Type Department Care Team (Late st Contact Info) Description 09/24/2021 MyChart Message Enc [facility] Family and Sports Medicine - [place] [address] [place] [address] Betsy Packer APNP [address] [place] [address] 39 Prednisone Social History Tobacco Use Types Packs/Day Years Used Date Smoking Tobacco: Former Cigarettes Smokeless Tobacco: Never Comments:only when drinking Alcohol Use Standard Drinks/Week Comments Not Currently 0 (1 standard drink = 0.6 oz pur e alcohol) occasionally PHQ-2 Answer Date Recorded PHQ-2 Score - If the patient scores above 3, please move on to questions 3-9 0 08/21/2021 Comments No Sex and Gender Information Value Date Recorded Sex Assigned at Female 08/15/2024 11:09 AM CDT Legal Sex Female 6:20 PM CDT Gender Identity Not on file Sexual Orientation Not on file COVID-19 Exposure Response Date Recorded In the last 10 days, have yo u been in contact with someone who was confirmed or suspected to have Coronavirus/COVID-19? No / Unsure 09/18/2021 7:29 AM CDT documented as of this encounter Progress Notes * Irena Verduzco MA - 09/24/2021 4:13 PM CDT Patients mom notified. * KEV Alvarez - 09/24/2021 4:00 PM CDT I sent another pred pack * KEV Alvarez - 09/24/2021 3:57 PM CDTFrom: Lynn Roland To: Betsy Packer Sent: 09/24/2021 2:53 PM CDT Subject: Prednisone Hello, I finished my prednisone and the tightness went away but it is starting to feel tight again. Could I get another round of the prednisone? thank you, Lynn Roland documented in this encounter Plan of Treatment Not on file documented as of this encounter Visit Diagnoses Diagnosis Seasonal asthma ([facility]) Unspecified asthma documented in this encounter Additional Health Concerns Assessment Noted Time PHQ-9 Depression Total Score: 0 08/22/19 10:42 AM CDT documented as of this encounter Care Teams Plating Machine Operator Relationship Specialty Start Date End Date Betsy Packer APNP [address] [place] [address] PCP - General NURSE PRACTITIONER 06/17/21 documented as of this encounter
--- OUTSIDE RECORDS SUMMARY | 2024-09-06 06:09 | XMS_ITS | Clinical Summary ---
Author Organization [facility] Address [address] [place] [address] Care Team Providers Care Electron Beam Welder Name Role Phone Betsy Packer Primary Care Provider [phone] Allergies No known active allergies Medications NUVARING 0.12-0.015 MG/24HR RING 1 RING INSERTED VAGINALLY X 3WEEKS, THEN 1 WEEK OUT 0 9 Active valACYclovir 500 MG tablet Take 1 tablet (500 mg total) by mouth daily. 1 Active levalbuterol (XOPENEX HFA) 45 MCG/ACT inhalerIndication s:Bronchitis Inhale 2 puffs into the lungs every 6 (six) hours as needed for Wheezing. 15 g 4 Active triamcinolone (KENALOG) 0.1 % creamIndications: Allergic reaction, initial encounter Apply topically 2 (two) times daily. 45 g 4 Active ubrogepant (UBRELVY) 50 MG tabletIndications :Other migraine without status migrainosus, not intractable Take 1 tablet (50 mg total) by mouth 2 (two) times daily as needed for Migraine. Max of 4 tablets (200 mg) in 24 hours 16 tablet 2 4 Active aluminum chloride (DRYSOL) 20 % external solutionIndicatio ns:Excessive sweating Apply topically nightly at bedtime. 2 mL 1 5 Active amphetamine-dextr oamphetamine (ADDERALL) 30 MG tabletIndications :Attention deficit hyperactivity disorder (ADHD), combined type Take 1 tablet (30 mg total) by mouth 2 (two) times daily. 60 tablet 5 Active ALPRAZolam (XANAX) 0.5 MG tabletIndications :Anxiety Take 1 tablet (0.5 mg total) by mouth 2 (two) times daily as needed for Sleep or Anxiety. 60 tablet 2 5 Active cefdinir (OMNICEF) 300 MG Cap capsuleIndication s:Non-recurrent acute serous otitis media of left ear Take 1 capsule (300 mg total) by mouth 2 (two) times daily. 20 capsule 5 025 Discontin ued(Thera py completed ) semaglutide (OZEMPIC) 2 MG/3ML injection (PEN)Indications: Diabetes Mellitus Inject 0.25 mg into the skin every 7 days. Indications: Diabetes 2 mL 1 5 025 Discontin ued(Thera py completed ) amphetamine-dextr oamphetamine (ADDERALL) 30 MG tabletIndications :Attention deficit hyperactivity disorder (ADHD), combined type Take 1 tablet (30 mg total) by mouth 2 (two) times daily. 60 tablet 5 025 Discontin ued(Reord er) ALPRAZolam (XANAX) 0.5 MG tabletIndications :Anxiety Take 1 tablet (0.5 mg total) by mouth 2 (two) times daily as needed for Sleep or Anxiety. 60 tablet 2 5 025 Discontin ued(Reord er) Active Problems Problem Noted Date Diagnosed Date Mixed anxiety and depressive disorder 09/27/2023 Adult attention deficit hyperactivity disorder 0 09/27/2023 Fracture of lateral malleolus 11/28/2019 Irregular intermenstrual bleeding 12/04/2014 Overview (11/18/2022): Irregular bleeding between periods;Recorded Elsewhere: No Location: [facility] Source: EHR Chronic: N Practice ID: [id number] Billable Time: 02:30:00 PM Obesity 12/04/2014 Overview (11/18/2022): Obesity;Recorded Elsewhere: No Location: [facility] Source: EHR Chronic: N Practice ID: [id number] Billable Time: 02:30:00 PM 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 Overview (11/18/2022): Bradycardia;Recorded Elsewhere: No Location: [facility] Source: EHR Chronic: N Practice ID: [id number] Billable Time: 02:27:45 PM Congenital malformation 08/01/2013 Overview (11/18/2022): screening for malformation using ultrasonics;Recorded Elsewhere: No Location: [facility] Source: EHR Chronic: N Practice ID: [id number] Billable Time: 02:30:00 PM Cervical intraepithelial neoplasia grade 1 08/22 Overview (11/18/2022): Mild dysplasia of cervix;Recorded Elsewhere: No Location: [facility] Source: EHR Chronic: N Practice ID: [id number] Billable Time: 08:30:00 AM History of abnormal cervical Papanicolaou smear 05/08/2012 Overview (11/18/2022): lgsil / HPV CIN1 Resolved Problems Problem Noted Date Diagnosed Date Resolved Date Encounter for preventive health examination 01/18/2012 01/18/2020 Encounters Date Type Department Care Team Description 08/22/2024 Results Follow-Up [facility] [address] [place] [phone] Betsy Packer APNP FOLIC ACID SERUM 08/15/2024 11:40 AM CDT Laboratory Only [facility] [place] [address] [facility] [place] [phone] Betsy Packer APNP 08/15/2024 11:00 AM CDT Office Visit [facility] [address] [facility] [place] [phone] Betsy Packer APNP Physical (Annual physical) 08/15/2024 Travel from Last 3 Months Immunizations Immunization Administration Dates Next Due Dtap (Generic) 12/17/1997,07/30/1993,01/05/1993 ,1992 Dtap/Hep B/Ipv 12/17/1997,07/30/1993,01/05/1993 ,1992 Dtp 08/03/1993 HPV 04/12/2008,12/12/2007,10/12/2007 Hepatitis B 07/08/1994,02/01/1994,06/05/1993 Hepatitis B Pediatric 02/01/1994 Hib 08/03/1993 Hib (Generic) 08/03/1993 Hib Vaccine, Prp-Omp 08/03/1993,01/05/1993,09/01 MMR 08/03/1993 MMR (Generic) 12/17/1997,08/03/1993 Opv 08/03/1993 Polio Ipv (Generic) 12/17/1997,08/03/1993,1992 Polio Opv (Generic) 08/03/1993 Td (Tenivac) preservative free 09/21/2006 Family History Medical History Relation Comments None Father None Mother Relation Status Comments Father Mother Social History Tobacco Use Types Packs/Day Years Used Date Smoking Tobacco: Former Cigarettes Passive Smoke Exposure: Past Smokeless Tobacco: Never Tobacco Cessation:Counseling Given: Not Answered Comments:only when drinking Alcohol Use Standard Drinks/Week Comments Not Currently 0 (1 standard drink = 0.6 oz pur e alcohol) occasionally PHQ-2 Answer Date Recorded Patient Health Questionnaire-2 Score 0 08/15/2024 Comments No Sex and Gender Information Value Date Recorded Sex Assigned at Female 08/15/2024 11:09 AM CDT Legal Sex Female 6:20 PM CDT Gender Identity Not on file Sexual Orientation Not on file Last Filed Vital Signs Vital Sign Reading Time Taken Comments Blood Pressure 128/81 08/15/2024 11:11 AM CDT Pulse 94 08/15/2024 11:11 AM CDT Temperature 36.8 C (98.2 F) 08/15/2024 11:11 AM CDT Respiratory Rate 16 08/15/2024 11:11 AM CDT Oxygen Saturation 97% 08/15/2024 11:11 AM CDT Inhaled Oxygen Concentration - - Weight 90.4 kg (199 lb 6.4 oz) 08/15/2024 11:11 AM CDT Height 170.2 cm (5' 7 ) 08/15/2024 11:11 AM CDT Body Mass Index 31.23 08/15/2024 11:11 AM CDT Plan of Treatment Health Maintenance Due Date Last Done Comments DTaP, Tdap and Td Vaccines (5 - Tdap) 09/22/2006 09/21/2006, 12/17/1997, 12/17/1997, Additional history exists COVID-19 Vaccine ( season) 2024 Annual Physical 08/15/2025 08/15/2024, 08/07, 08/24/2022, Additional history exists Cervical Cancer Screening Pap Smear (Age 30 to 64) Every 3 Years 09/26/2026 09/27/2023, 09/27/2023, 09/27/2023, Additional history exists Cervical Cancer Screening Pap with HPV Testing (Age 30 to 64) Every 5 Years 09/26/2028 09/27/2023, 12/29/2022, 08/30/2022, Additional history exists Cervical Cancer Screening with HPV 09/26/2028 Hepatitis B Vaccines Completed 12/17/1997, 07/08/1994, 02/01/1994, Additional history exists HPV Vaccines Completed 04/12/2008, 09/2007, 10/12/2007 Hepatitis C Completed 01/06/2022 PHQ-2 (Physician Kake) Completed 08/15/2024 Meningococcal B Vaccine Aged Out No l onger eligible based on patient's age to complete this topic Meningococcal Vaccine Aged Out No lesa aretha eligible based on patient's age to complete this topic Pneumococcal Vaccine: Pediatrics (0 to 5 Years) and At-Risk Patients (6 to 49 Years) Aged Out No longer eligible based on patient's age to complete this topic RSV Immunizations Under 20 Months Aged Out No longer eligible based on patient's age to complete this topic Procedures Procedure Name Priority Date/Time Associated Diagnosis Comments HEMOGLOBIN, GLYCOSYLATED Routine 08/15/2024 11:58 AM CDT Healthcare maintenance Screening for diabetes mellitus (DM) CBC W/DIFF AUTOMATED Routine 08/15/2024 11:58 AM CDT Healthcare maintenance COMPREHENSIVE METABOLIC PANEL Routine 08/15/2024 11:58 AM CDT Healthcare maintenance Screening for diabetes mellitus (DM) LIPID PANEL Routine 08/15/2024 11:58 AM CDT Healthcare maintenance Screening for hyperlipidemia TSH W/REFLEX Routine 08/15/2024 11:58 AM CDT Healthcare maintenance Screening for thyroid disorder VITAMIN D, 25 OH Routine 08/15/2024 11:5 8 AM CDT Healthcare maintenance VITAMIN B-12 Routine 08/15/2024 11:58 AM CDT Healthcare maintenance FOLIC ACID SERUM Routine 08/15/2024 11:5 8 AM CDT Healthcare maintenance COLLECTION VENOUS BLOOD VENIPUNCTURE Routine 08/15/2024 11:43 AM CDT Healthcare maintenance HEPATITIS PANEL,ACUTE Routine 01/06/2022 11:57 AM CDT Routine screening for STI (sexually transmitted infection) OUTSIDE CYTOPATH CERV/VAG INTERPRET (PAP) 08/28/2021 from Last 3 Months or Most Recently Relevant to Health Maintenance Results * TSH W/REFLEX (08/15/2024 11:58 AM CDT) TSH 1.52 mIU/L [facility] Comment: Reference Range > or = 20 Years 0.40-4.50 Ranges First trimester 0.26-2.66 Second trimester 0.55-2.73 Third trimester 0.43-2.91 08/15/2024 11:5 8 AM CDT 08/16/2024 6:03 AM CDT Narrative Resulting Agency Comment Performing Organization Information: Site ID: [place] Name: [facility] Address: [address] [address] Director: Robin Duncan MD us Betsy [facility] Final Result [facility] Sherrie HAIDER [facility] [address] [address], * HEMOGLOBIN, GLYCOSYLATED (08/15/2024 11:58 AM CDT) HGB A1C 4.8 <5.7 % of total Hgb [facility] Comment: For the purpose of screening for the presence of diabetes: <5.7% Consistent with the absence of diabetes 5.7-6.4% Consistent with increased risk for diabetes (prediabetes) > or =6.5% Consistent with diabetes This assay result is consistent with a decreased risk of diabetes. Currently, no consensus exists regarding use of hemoglobin A1c for diagnosis of diabetes in children. According to [place] Diabetes Association (ADA) guidelines, hemoglobin A1c <7.0% represents optimal control in non- diabetic patients. Different metrics may apply to specific patient populations. Standards of Medical Care in Diabetes(ADA). 08/15/2024 11:5 8 AM CDT 08/16/2024 6:03 AM CDT Narrative Resulting Agency Comment Performing Organization Information: Site ID: [place] Name: [facility] Address: [address] [place] [phone] Director: Robin Duncan MD Betsy Ochoa [facility] Final Result Performing Organization Address City/[facility]/ZIP Co de Phone Number [place] RAYMOND HAIDER [facility] [address] [address], * VITAMIN B-12 (08/15/2024 11:58 AM CDT) VITAMIN B12 S/P/B 682 200 - 1,100 pg/mL [facility] 08/15/2024 11:5 8 AM CDT 08/16/2024 6:02 AM CDT Narrative Resulting Agency Comment Performing Organization Information: Site ID: [place] Name: [facility] Address: [address] [place] [phone] Director: Robin Duncan MD Betsy Ochoa [facility] Final Result Performing Organization Address City/[facility]/ZIP Co de Phone Number [facility] Sherrie HAIDER [facility] [address] [place] [address], * COMPREHENSIVE METABOLIC PANEL (08/15/2024 11:58 AM CDT) GLUCOSE 88 65 - 99 mg/dL [facility] Comment: Fasting reference interval BUN 11 7 - 25 mg/dL [facility] CREATININE S/P/B 0.70 0.50 - 0.97 mg/dL [facility] GFR ESTIMATE 118 > OR = 60 mL/min/1. 73m2 [facility] BUN CREATININE RATIO SEE NOTE: (calc) [facility] Comment: Not Reported: BUN and Creatinine are within reference range. SODIUM S/P/B 138 135 - 146 mmol/L [facility] POTASSIUM S/P/B 4.5 3.5 - 5.3 mmol/L [facility] CHLORIDE S/P/B 102 98 - 110 mmol/L [facility] CO2 26 20 - 32 mmol/L [facility] CALCIUM S/P/B 9.8 8.6 - 10.2 mg/dL [facility] TOTAL PROTEIN S/P/B 7.4 6.1 - 8.1 g/dL [facility] ALBUMIN S/P/B 4.8 3.6 - 5.1 g/dL [facility] GLOBULIN 2.6 1.9 - 3.7 g/dL (calc) [facility] ALBUMIN/GLOBULI N RATIO 1.8 1.0 - 2.5 (calc) [facility] BILIRUBIN TOTAL S/P/B 0.4 0.2 - 1.2 mg/dL [facility] ALKALINE PHOSPHATASE S/P/B 34 31 - 125 U/L [facility] AST 21 10 - 30 U/L [facility] ALT 20 6 - 29 U/L [facility] 08/15/2024 11:5 8 AM CDT 08/16/2024 6:03 AM CDT Narrative Resulting Agency Comment Performing Organization Information: Site ID: [place] Name: ID [facility] Address: [id number] [place] [address] [place] [address] Director: Robin Duncan MD Betsy [facility] Final Result Performing Organization Address City/[facility]/ZIP Co de Phone Number HENNA HAIDER [facility] [address] [address], * LIPID PANEL (08/15/2024 11:58 AM CDT) CHOLESTEROL 195 <200 mg/dL [facility] HDL 74 > OR = 50 mg/dL [facility] TRIGLYCERIDES 142 <150 mg/dL [facility] LDL (CALCULATED) 97 mg/dL (calc) [facility] Comment: Reference range: <100 Desirable range <100 mg/dL for primary prevention; <70 mg/dL for patients with CHD or diabetic patients with > or = 2 CHD risk factors. LDL-C is now calculated using the Ita calculation, which is a validated novel method providing better accuracy than the Friedewald equation in the estimation of LDL-C. Pilo RENEE et al. RHEA. 2013;310(19): 8217-5138 (http://education.Face++/faq/DEQ826) CHOL/HDL RATIO 2.6 <5.0 (calc) [facility] NON HDL CHOLESTEROL 121 <130 mg/dL (calc) [facility] Comment: For patients with diabetes plus 1 major ASCVD risk factor, treating to a non-HDL-C goal of <100 mg/dL (LDL-C of <70 mg/dL) is considered a therapeutic option. 08/15/2024 11:5 8 AM CDT 08/16/2024 6:03 AM CDT Narrative Resulting Agency Comment Performing Organization Information: Site ID: [place] Name: Henna Aguilar Address: [address] [address] Director: Robin Duncan MD Betsy [facility] Final Result Performing Organization Address City/[facility]/ZIP Co de Phone Number HENNA HAIDER [facility] [address] [address], * FOLIC ACID SERUM (08/15/2024 11:58 AM CDT) Pathologist [facility] FOLATE 23.3 ng/mL [facility] Comment: Reference Range Low: <3.4 Borderline: 3.4-5.4 Normal: >5.4 08/15/2024 11:5 8 AM CDT 08/16/2024 6:02 AM CDT Narrative Resulting Agency Comment Performing Organization Information: Site ID: [place] Name: Henna Aguilar Address: [address] [address] Director: Robin Duncan MD Betsy [facility] Final Result HENNA HAIDER [facility] [address] [place] [address], * CBC W/DIFF AUTOMATED (08/15/2024 11:58 AM CDT) WBC 6.5 3.8 - 10.8 Thousand/u L [facility] RBC 4.59 3.80 - 5.10 Million/uL [facility] HGB 14.2 11.7 - 15.5 g/dL [facility] HCT 42.3 35.0 - 45.0 % [facility] MCV 92.2 80.0 - 100.0 fL [facility] MCH 30.9 27.0 - 33.0 pg [facility] MCHC 33.6 32.0 - 36.0 g/dL [facility] Comment: For adults, a slight decrease in the calculated MCHC value (in the range of 30 to 32 g/dL) is most likely not clinically significant; however, it should be interpreted with caution in correlation with other red cell parameters and the patient's clinical condition. RDW 11.8 11.0 - 15.0 % [facility] PLT 319 140 - 400 Thousand/u L [facility] MPV 11.4 7.5 - 12.5 fL [facility] ABS. NEUTROPHILS 3,348 1,500 - 7,800 cells/uL [facility] ABS. LYMPHOCYTES 2,652 850 - 3,900 cells/uL [facility] ABS. MONOCYTES 358 200 - 950 cells/uL [facility] ABS. EOSINOPHILS 91 15 - 500 cells/uL [facility] ABS. BASOPHILS 52 0 - 200 cells/uL [facility] SEG NEUTROPHILS 51.5 % [facility] [place] [facility] LYMPHOCYTES 40.8 % [facility] MONOCYTES 5.5 % [facility] EOSINOPHILS 1.4 % [facility] BASOPHILS 0.8 % [facility] 08/15/2024 11:5 8 AM CDT 08/16/2024 6:03 AM CDT Narrative Resulting Agency Comment Performing Organization Information: Site ID: [place] Name: [facility] Address: [address] [place] [phone] Director: Robin Duncan MD Betsy [facility] Final Result [facility] RAYMOND HAIDER [facility] [address] [address], * VITAMIN D, 25 OH (08/15/2024 11:58 AM CDT) VITAMIN D 25 HYDROXY TOTAL S/P/B 51 30 - 100 ng/mL [facility] Comment: Vitamin D Status 25-OH Vitamin D: Deficiency: <20 ng/mL Insufficiency: 20 - 29 ng/mL Optimal: > or = 30 ng/mL For 25-OH Vitamin D testing on patients on D2-supplementation and patients for whom quantitation of D2 and D3 fractions is required, the QuestAssureD(TM) 25-OH VIT D, (D2,D3), LC/MS/MS is recommended: order code 57382 (patients >2yrs). See Note 1 Note 1 For additional information, please refer to http://education.Face++/faq/YRF271 (This link is being provided for informational/ educational purposes only.) 08/15/2024 11:5 8 AM CDT 08/16/2024 6:03 AM CDT Narrative Resulting Agency Comment Performing Organization Information: Site ID: [place] Name: [facility] Address: [address] [place] [phone] Director: Robin Duncan MD Betsy [facility] Final Result Performing Organization Address [facility] Co de Phone Number [facility] [address] [place] [address], * HEPATITIS PANEL,ACUTE (01/06/2022 11:57 AM CDT) HAV IGM NON-REACTI VE NON-REACT LUIS [facility] Comment: For additional information, please refer to http://ADAPTIX.CS Networks/faq/ESC977 (This link is being provided for informational/ educational purposes only.) HEPATITIS B SURFACE AG NON-REACTI VE NON-REACT LUIS [facility] HEP B CORE IGM NON-REACTI VE NON-REACT LUIS [facility] HEPATITIS C AB NON-REACTI VE NON-REACT LUIS [facility] SIGNAL TO CUTOFF 0.01 <1.[address] [facility] Comment: HCV antibody was non-reactive. There is no laboratory evidence of HCV infection. In most cases, no further action is required. However, if recent HCV exposure is suspected, a test for HCV RNA (test code 72692) is suggested. For additional information please refer to http://ADAPTIX.CS Networks/faq/LUN52e6 (This link is being provided for informational/ educational purposes only.) 01/06/2022 11:5 7 AM CDT 01/08/2022 12:28 PM CDT Betsy Packer [facility] Final Result Performing Organization Address [facility] Co de Phone Number [facility] [address] [place] [address] * PAP SMEAR WITH HPV (08/28/2021) 08/28/2021 Narrative 08/28/2021 Ordered by an unspecified provider. us Documents Scanned SCANNING Final Result from Last 3 Months or Most Recently Relevant to Health Maintenance Insurance R Care Teams Electron Beam Welder Relationship Specialty Start Date End Date Betsy Packer APNP [address] [place] [address] PCP - General NURSE PRACTITIONER 06/17/21
--- OUTSIDE RECORDS SUMMARY | 2024-09-06 06:09 | XMS_ITS | Encounter Summary ---
Author Organization [facility] Address [address] [place] [address] Care Team Providers Care Pediatric Physician Name Role Phone Betsy Packer Primary Care Provider [phone] Encounter Details Date Type Department Care Team (Late st Contact Info) Description 05/26/2023 MyCSaplot Message Enc [facility] - [place] [address] [place] [address] Betsy Packer APNP [address] [place], [place] [phone] Med Requst Social History Tobacco Use Types Packs/Day Years [...] documented as of this encounter Care Teams Pediatric Physician Relationship Specialty Start Date End Date Betsy Packer APNP [address] [place] [address] PCP - General NURSE PRACTITIONER 06/17/21 documented as of this encounter
--- OUTSIDE RECORDS SUMMARY | 2024-09-06 06:09 | XMS_ITS | Clinical Summary ---
Author Organization [facility] Address [address] [place] [address] Care Team Providers Care Bias Binding Folder Name Role Phone Shelia Stewart REGINE-QUARTER TRIMMER Primary Care Provider [phone] Source Comments [facility],non-owned Affiliates and Associated Physician Practices is amultiple site organization consisting of ambulatory clinics and hospital sitesin [place], [place], [place] and [place]. This disclosure is being madepursuant to the Care Everywhere program and may not contain all information available regarding this patient. Last updated 18.[facility] Allergies Active Allergy Reactions Criticality Noted Date Comments Penicillins Unknown 06/09/2018 As a child Medications * Be aware that medications may not be up to date on this document. Alwaysverify current medications with the patient. cetirizine (ZYRTEC) 10 MG tablet Take 10 mg by mouth once daily Active etonogestrel-et hinyl estradiol (NUVARING) 0.12-0.015 MG/24HR vaginal ring etonogestrel 0.12 mg-ethinyl estradiol 0.015 mg/24 hr vaginal ring 9 Active Family History Medical History Relation Name Comments Asthma Neg Hx Autoimmune Disease Neg Hx Bipolar Disorder Neg Hx Cancer - Breast Neg Hx Cancer - Colon Neg Hx Cancer - Other Neg Hx Cancer - Ovarian Neg Hx Cancer - Pancreatic Neg Hx Cancer - Prostate Neg Hx Depression Neg Hx Eczema Neg Hx Hypertension Neg Hx Migraine Neg Hx Osteoporosis Neg Hx Seizures Neg Hx Sudd. 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 Gender Identity Not on file Sexual Orientation Not on file Last Filed Vital Signs Vital Sign Reading Time Taken Comments Blood Pressure 118/70 11/18/2019 10:23 AM CDT Pulse 89 11/18/2019 10:23 AM CDT Temperature 36.7 C (98 F) 11/18/2019 10:23 AM CDT Respiratory Rate 14 11/18/2019 10:23 AM CDT Oxygen Saturation 98% 11/18/2019 10:23 AM CDT Inhaled Oxygen Concentration - - Weight 90.7 kg (200 lb) 11/18/2019 10:23 AM CDT Height 170.2 cm (5' 7 ) 11/18/2019 10:23 AM CDT Body Mass Index 31.32 11/18/2019 10:23 AM CDT Plan of Treatment Health Maintenance Due Date Last Done Comments HIV SCREENING 01/10/2007 HEPATITIS C SCREENING 01/06/2010 DTAP/TDAP/TD VACCINES (1 - Tdap) 01/10/2011 HEPATITIS B VACCINE (1 of 3 - 19+ 3-dose series) 01/10/2011 COVID-19 VACCINE (1 - 2023-2 5 season) 2024 DEPRESSION SCREENING 05/09/2024 INFLUENZA VACCINE (Season Ended) 2025 ZOSTER VACCINE (1 of 2) 01/10/2042 HIB VACCINE Aged Out No longer eligi ble based on patient's age to complete this topic HPV VACCINE Aged Out No longer eligi ble based on patient's age to complete this topic MENINGOCOCCAL (Group B) VACC INE SHARED DECISION-MAKING Aged Out No longer eligibl e based on patient's age to complete this topic MENINGOCOCCAL GROUPS A/C/Y/W VACCINE Aged Out No longer eligible b ased on patient's age to complete this topic PNEUMOCOCCAL VACCINE Aged Out No long er eligible based on patient's age to complete this topic Insurance [facility] Care Teams Bias Binding Folder Relationship Specialty Start Date End Date Shelia Stewart, RETAIL SERVICE TECHNICIAN-QUARTER TRIMMER [address] [place] [address] PCP - General Nurse Practitioner Family 11/18/19
[2024-09-06] MEDS: LACTATED RINGERS 1,000 ML 30 ML IV CONT ×2 (06:35→11:05)
--- NOTE | 2024-09-06 06:45 | WPDHPUPDATE1 ---
History and Physical Update Update Date/Time: 09/06/24 06:45 Patient seen and examined in pre-operative holding area. No interval change in medical history or symptoms. Patient remembers previous discussion of benefits and alternatives to procedure. Continues to desire to proceed with abdominoplasty. I reviewed the risks including but not limited to bleeding ,infection, asymmetry, undesireable cosmetic appearance, partial/total skin/umbilicus loss, no change or worsening of symptoms, change in sensation. I discussed the possible use of assistants and their level of participation in the case. Patient stated understanding and signed the consent form wishing to proceed
--- NOTE | 2024-09-06 06:46 | W.PM.PROC2 ---
Procedure Note - Detailed Date of Procedure 09/06/24 Pre-op Diagnosis Excess Skin of Abdomen Post-op Diagnosis Same Procedure Performed abdominoplasty Surgeon Florin Mcclain MD Fellmongery Worker ami pope pa-c Anesthesia General Description of Procedure Patient was seen in the preoperative holding area where the lower skin flap was marked with the patient standing and consent form was signed. Patient was taken back to the operating room and placed on the table in the supine position. Time-out was performed with Anesthesia, surgeon, and staff a Gram patient's name, site, and surgery to be performed. SCDs were placed on lower extremities and inflated. Antibiotics were given IV. After general anesthesia was administered the abdomen was prepped and draped in the usual sterile fashion. I made my further incision markings using 7 cm above the vaginal commissure on upward stretch going horizontally for 14 cm and then extending upward laterally past the anterior superior iliac spine below the previously marked intertrigo fold. I made my skin incision with 10 blade scalpel through skin and dermis. Bovie cautery was used to dissect down to the rectus fascia. I proceeded with elevating skin flap below the umbilicus. Fifteen blade scalpel was used to incise the umbilicus through skin and dermis and then a saline moistened lap pad was used to bluntly dissect the stalk down to the abdominal wall. The root of the stalk the rectus fascia was identified and protected throughout the procedure. I proceeded with continually using Bovie cautery to dissect superiorly up to the xiphoid process. Irrigated with normal saline and hemostasis with Bovie cautery. I proceeded with rectus plication using looped 0 PDS suture above the umbilicus and then a separate suture below the umbilicus. There was no constriction of the umbilical stalk with the plication and there was significant improvement in the diastasis. Next of table was flexed to 25? and skin flap was marked using [employer] clamps and superior and inferior tension on the flaps. Superior incision markings were then incised with 10 blade scalpel and Bovie cautery to resect the excess abdominal skin and subcutaneous tissue. Two 10 [place] CHRISTINA drains were placed along the incision coming out laterally and secured with 3-0 silk suture. The flap was provisionally secured with [employer] clamps. I resected a small square of tissue at the appropriate position of the obed umbilicus through skin and dermis with 15 blade scalpel and then Bovie cautery was used to dissect through the skin flap. The umbilicus was identified and brought up into its new position and secured with 3-0 Vicryl suture and 4-0 chromic. 2-0 Vicryl was used for Jimmy's fascia. 2-0 and 3-0 Vicryl were used for dermis. 4-0 Monocryl was used for subcuticular closure. There was good symmetry between both sides of the abdomen. The umbilicus appeared viable with good cap refill. I injected 20 cc 1% lidocaine with epinephrine and 0.5% Marcaine plain along each side of the lower abdominal incision a dressing of Mastisol, Steri-Strips, 4 x 4, ABDs were as applied to lower abdomen incision and drain sites. A strip of Xeroform, 4 x 4 and Tegaderm was applied to the umbilicus. The drains were hooked to bulb suction. An abdominal binder was applied. The patient was awakened from anesthesia and transferred to the recovery room in stable condition. Complications: None Estimated blood loss: 40 cc Disposition: Patient tolerated the procedure well and will be going home later today. Ami Pope PA-C was essential for positioning, retraction, hemostasis, closure and dressing placement [facility] Billing Surgery - Charge Forward: Surgery Billing (cosmetic self-pay fee paid prior to scheduling)
--- NOTE | 2024-09-06 07:06 | P.PNAN_ITS ---
Anes - Initial Pre Proc Eval Procedure: Operation Date: 09/06/24 07:30 Proposed Procedures p Abdominoplasty - Florin Mcclain MD Date/Time: 09/06/24 07:06 Surgeon: Florin Mcclain MD Pre Op Diagnosis: Excess Skin of Abdomen Patient Data Age: 34 Gender: F Height: 1.7 m Weight: 90.95 kg Last Vital Signs Temp 36.7 C 09/06/24 06:24 Pulse 100 09/06/24 06:24 Resp 16 09/06/24 06:24 BP 129/82 09/06/24 06:24 Pulse Ox 100 09/06/24 06:24 O2 Del Method Room Air 09/06/24 06:24 Allergies Allergy/AdvReac Type Severity Reaction Status Date / Time Penicillins Allergy Unknown Unknown Verified 09/06/24 06:21 Home Medications ?Medication ?Instructions ?Recorded ?Confirmed ?Type alprazolam 0.5 mg tablet 0.5 mg PO QHS PRN anxiety 10/18/23 09/06/24 History dextroamphetamine-amphetamine 30 30 mg PO BID 10/18/23 09/06/24 History mg tablet (Adderall) etonogestrel 0.12 mg-ethinyl 1 vag ring vaginal ONCE 10/18/23 09/06/24 History estradiol 0.015 mg/24 hr vaginal ring (NuvaRing) valacyclovir 500 mg tablet 500 mg PO DAILY 10/18/23 09/06/24 History cholecalciferol (vitamin D3) 1 tablet PO DIRECTED 08/28/24 09/06/24 History magnesium 1 tablet PO DIRECTED 08/28/24 09/06/24 History multivitamin (Daily Multi-Vitamin 1 tablet PO DAILY 08/28/24 09/06/24 History tablet) Patient hx anesthesia problems: none Family hx anesthesia problems: none Results Review: All pre-operative results and documents have been reviewed as part of the pre- operative evaluation. [facility] Past Medical History Medical History (Updated 09/06/24 @ 07:18 by Carlos Shanks MD) Anxiety Obesity Surgical History Surgical History (Updated 09/06/24 @ 07:18 by Carlos Shanks MD) Hx of tonsillectomy Social History Social History (Updated 09/06/24 @ 07:18 by Carlos Shanks MD) Smoking status: Former smoker Tobacco type: e-cigarettes/vaping Alcohol use details: rarely Do You Feel Safe in your Home?: Yes Lack of Transportation: No Lack of Food: Never True Current Housing: I Have Housing Concerned About Future Housing: No Difficulty Paying Gas/Electric Bills: No Difficulty Paying for Meds: No Currently Unemployed: No Education: Associate Degree Difficulty w/ Childcare or Family Care: No Anes - Eval Final PreProcedure Day of Procedure 09/06/24 07:06 Patient weight: obese Heart: regular rate and rhythm Lungs: clear to auscultation Airway: Mallampati scale class II Neurological: alert and oriented Last oral intake: >/= 8 hours ASA classification: II Emergent: no Anesthetic plan: proceed Anesthesia type and monitoring: general LMA and standard monitoring Results Review: All pre-operative results and documents have been reviewed as part of the pre- operative evaluation. Informed Consent: The patient's anesthetic plan and its attendant risks and benefits were discussed with the patient/family/POA. Questions were solicited and answers provided to the satisfaction of the patient/family/POA.
[2024-09-06] MEDS: CLINDAMYCIN 900 MG/NS 50 ML 900 MG/50 ML PIGGYBACK 50 MG IVPB (07:15)
[2024-09-06] MEDS: SCOPOLAMINE 1 MG PATCH 1 PATCH TRANSDERM (07:20)
[2024-09-06] MEDS: LIDOCAINE 1% LOCAL INJ 20 ML VIAL INFILTRATE (09:09)
[2024-09-06] MEDS: BUPIVACAINE/EPINEPHRINE 0.5% 10 ML VIAL 20 ML INFILTRATE (09:10)
[2024-09-06] MEDS: fentaNYL CITRATE INJ (*CRX) 100 MCG/2 ML VIAL 25 MCG IV PUSH ×8 (09:38→10:11)
[2024-09-06] MEDS: ONDANSETRON INJ 4 MG/2 ML VIAL IV PUSH (10:05)
[2024-09-06] MEDS: oxyCODONE HCL (*CRX) 5 MG TAB IR PO (10:40)
[2024-09-06] MEDS: HYDROmorphone HCL INJ (*CRX) 1 MG/ML SYR 0.5 MG IV PUSH ×2 (11:01→11:10)
--- NOTE | 2024-09-06 11:50 | WPDANESPN ---
Anes - Prog Note Post-Op Date/Time: 09/06/24 11:50 Cardiovascular status: normal Respiratory status: normal Airway patency: baseline Mental status: baseline Post-Op hydration status: normal Vital Signs: Last Vital Signs Temp 36.6 C 09/06/24 09:27 Pulse 85 09/06/24 11:00 Resp 20 09/06/24 11:00 BP 144/105 H 09/06/24 11:00 Pulse Ox 100 09/06/24 11:00 O2 Del Method Room Air 09/06/24 11:00 O2 Flow Rate 8 09/06/24 10:10 Pain Score (VAS): 10 I/O: Intake & Output 09/05/24 09/06/24 09/06/24 23:59 07:59 15:59 Intake Total 300 Balance 300 Patient Feedback: Patient satisfied with anesthetic care.
== END 2024-09-06 12:10 | disposition home or self-care (01) ==
PROVIDERS: PCP Nurse Practitioner Family; Visit Provider Plastic Surgery
PROC: (CPT 15830; principal; 2024-09-06 07:30)
DX: Z41.1 Encounter for cosmetic surgery (principal); L98.7 Excessive and redundant skin and subcutaneous tissue
CPT/HCPCS: 15830; 15847